=== PATIENT | female | born 1975 | race Caucasian/White ===

== ENCOUNTER 2020-07-01 07:40 | Outpatient (CLI) | payer OTHER, SELFPAY ==
--- NOTE | ~2020-07-01 | MM_ITS ---
EXAMINATION: MM screening [facility] BI w antoni HISTORY: Screening mammogram TECHNIQUE: Craniocaudal and mediolateral oblique 3-D tomosynthesis images were obtained and synthetic 2-D images were generated. CAD analysis was submitted and interpreted. COMPARISON: 119, 05/29/2018, 05/21/2017 BREAST PARENCHYMAL COMPOSITION: The breasts are heterogeneously dense, which may obscure small masses . FINDINGS: There is no evidence of suspicious mass, calcification, or architectural distortion to sugg est malignancy in either breast. There has been no suspicious interval change. IMPRESSION: 1. No mammographic evidence of malignancy. 2. Recommend routine screening mammography in one year. BI-RADS Category 1: Negative Reviewed, dictated and finalized at location A.
== END 2020-07-01 07:41 | disposition home or self-care (01) ==
LOC: ANHIMG 07:42
PROVIDERS: PCP Family Medicine; Visit Provider Obstetrics & Gynecology
DX: Z12.31 Encounter for screening mammogram for malignant neoplasm of breast (principal)
CPT/HCPCS: 77063; 77067

== ENCOUNTER 2021-07-07 10:24 | Outpatient (CLI) | payer OTHER, SELFPAY ==
--- NOTE | ~2021-07-07 | MM_ITS ---
EXAMINATION: MM screening [facility] w antoni HISTORY: Screening TECHNIQUE: Craniocaudal and mediolateral oblique 3-D tomosynthesis images were obtained and synthetic 2-D images were generated. CAD analysis was submitted and interpreted. COMPARISON: Comparison to multiple prior studies sequentially, with oldest reviewed study dated 04/19. BREAST PARENCHYMAL COMPOSITION: The breasts are extremely dense, which lowers the sensitivity of mamm ography. FINDINGS: There is no evidence of suspicious mass, calcification, or architectural distortion to sugg est malignancy in either breast. There has been no suspicious interval change. IMPRESSION: 1. No mammographic evidence of malignancy. 2. Recommend routine screening mammography in one year. BI-RADS Category 1: Negative Reviewed, dictated and finalized at location A.
== END 2021-07-07 10:25 | disposition home or self-care (01) ==
LOC: ANHIMG 10:26
PROVIDERS: PCP Nurse Practitioner Family; Visit Provider Obstetrics & Gynecology
DX: Z12.31 Encounter for screening mammogram for malignant neoplasm of breast (principal)
CPT/HCPCS: 77063; 77067

== ENCOUNTER 2022-09-17 08:22 | Outpatient (CLI) | payer OTHER, SELFPAY ==
--- NOTE | ~2022-09-17 | MM_ITS ---
EXAMINATION: MM screening [facility] w antoni HISTORY: Screening TECHNIQUE: Craniocaudal and mediolateral oblique 3-D tomosynthesis images were obtained and synthetic 2-D images were generated. CAD analysis was submitted and interpreted. COMPARISON: Comparison to multiple prior studies sequentially, with oldest reviewed study dated 04/2016. BREAST PARENCHYMAL COMPOSITION: The breasts are extremely dense, which lowers the sensitivity of mamm ography FINDINGS: There is no evidence of suspicious mass, calcification, or architectural distortion to sugg est malignancy in either breast. There has been no suspicious interval change. IMPRESSION: 1. No mammographic evidence of malignancy. 2. Recommend routine screening mammography in one year. BI-RADS Category 1: Negative Reviewed, dictated and finalized at location A. R TEST
== END 2022-09-17 08:23 | disposition home or self-care (01) ==
LOC: ANHIMG 08:24
PROVIDERS: PCP Family Medicine; Visit Provider Obstetrics & Gynecology
DX: Z12.31 Encounter for screening mammogram for malignant neoplasm of breast (principal)
CPT/HCPCS: 77063; 77067

== ENCOUNTER 2023-11-01 09:10 | Outpatient (CLI) | payer OTHER, SELFPAY ==
--- NOTE | ~2023-11-01 | MM_ITS ---
EXAMINATION: MM screening [facility] w antoni HISTORY: Screening mammogram TECHNIQUE: Craniocaudal and mediolateral oblique 3-D tomosynthesis images were obtained and synthetic 2-D images were generated. CAD analysis was submitted and interpreted. COMPARISON: 09/17/2022, 07/07/2021, 07/01/2020 bilateral screening mammogram examinations BREAST PARENCHYMAL COMPOSITION: The breasts are extremely dense, which lowers the sensitivity of mamm ography. FINDINGS: There is no evidence of suspicious mass, calcification, or architectural distortion to sugg est malignancy in either breast. There has been no suspicious interval change. IMPRESSION: 1. No mammographic evidence of malignancy. 2. Recommend routine screening mammography in one year. BI-RADS Category 1: Negative Reviewed, dictated and finalized at location A. 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
== END 2023-11-01 09:11 | disposition home or self-care (01) ==
PROVIDERS: PCP Family Medicine; Visit Provider Obstetrics & Gynecology
DX: Z12.31 Encounter for screening mammogram for malignant neoplasm of breast (principal)
CPT/HCPCS: 77063; 77067

== ENCOUNTER 2024-07-16 01:51 | Day surgery (SDC) | payer OTHER, SELFPAY ==
[2024-06-24 14:18] VITALS: BMI 27.6
[2024-07-16 06:24] VITALS: BP 110/74; PULSE 87; RESP 20; TEMP 36.4; O2SAT 100
[2024-07-16 06:29] LABS: BEDSIDEPREGUCG Negative (Negative)
[2024-07-16] MEDS: LACTATED RINGERS 1,000 ML 150 ML IV CONT (06:35)
--- NOTE | 2024-07-16 07:14 | WPDANESEPPF ---
Anes - Initial Pre Proc Eval Procedure: Operation Date: 07/16/24 07:30 Proposed Procedures p Screening Colonoscopy - Yousif Torre DO Date/Time: 07/16/24 07:14 Surgeon: Yousif Torre DO Pre Op Diagnosis: Screening for malignant neoplasm of colon Patient Data Age: 49 Gender: F Height: 1.57 m Weight: 67.6 kg Last Vital Signs Temp 36.4 C L 07/16/24 06:24 Pulse 87 07/16/24 06:24 Resp 20 07/16/24 06:24 BP 110/74 07/16/24 06:24 Pulse Ox 100 07/16/24 06:24 O2 Del Method Room Air 07/16/24 06:24 Allergies Allergy/AdvReac Type Severity Reaction Status Date / Time No Known Allergies Allergy Unknown Verified 07/16/24 06:21 Home Medications Medication Instructions Recorded Confirmed Type norgestimate-ethinyl estradiol 1 tablet PO DAILY 09/29/19 07/16/24 History 0.18 mg/0.215mg/0.25mg-35 mcg(28)tablet (Tri-Linyah) cholecalciferol (vitamin D3) 50 50 mcg PO DAILY 03/27/21 07/16/24 History mcg (2,000 unit) capsule fluticasone 100 mcg-salmeterol 50 1 ea inhalation Q12H #180 ea 02/14/24 07/16/24 Rx mcg/dose blistr powdr for inhalation (Advair Diskus) Laboratory Tests 07/16/24 06:24 POC Urine HCG, Qual Negative (Negative) Patient hx anesthesia problems: none Family hx anesthesia problems: none Results Review: All pre-operative results and documents have been reviewed as part of the pre-operative evaluation. [facility] Past Medical History Medical History Asthma Dyslipidemia Surgical History Surgical History Hx of section (~01/2002) Family History Family History Father Diabetes mellitus Grandparent Diabetes mellitus Hypertension Lung cancer Alcohol abuse Heart disease Cerebrovascular accident Lupus Sibling Alcohol abuse Social History Social History Social History: , 2 children. 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 Smoking status: Never smoker Second hand tobacco smoke exposure: No Alcohol intake: current Alcohol use details: only on occasion. Substance use: never Substance use type: does not use Living arrangements: with family Spiritual care concerns: No Anes - Eval Final PreProcedure Day of Procedure 07/16/24 07:14 Patient weight: overweight Heart: regular rate and rhythm Lungs: clear to auscultation Airway: Mallampati scale class II Neurological: alert and oriented Last oral intake: >/= 8 hours ASA classification: II Emergent: no Anesthetic plan: proceed Anesthesia type and monitoring: general GIVS and standard monitoring Results Review: All pre-operative results and documents have been reviewed as part of the pre-operative evaluation. Informed Consent: The patient's anesthetic plan and its attendant risks and benefits were discussed with the patient/family/POA. Questions were solicited and answers provided to the satisfaction of the patient/family/POA.
--- NOTE | 2024-07-16 07:30 | PM.IMHP ---
H&P: HPI History of Present Illness Date/Time: 07/16/24 07:30 Chief Complaint: Screening for colorectal cancer Narrative: this is a 49-year-old woman who presents for colonoscopy. She has never had a colonoscopy before. She denies any family history of colon cancer. She denies any hematochezia or melena. Review of Systems Review of Systems: All systems reviewed & are unremarkable except as noted in HPI and below Constitutional: Constitutional: Denies chills, Denies fever(s), Denies headache(s) and Denies weight loss Eyes: Eyes: Denies change in vision ENT: Denies dizziness, Denies headache(s), Denies neck mass and Denies throat swelling Cardiovascular: Cardiovascular: Denies chest pain, Denies lightheadedness and Denies dyspnea Respiratory: Respiratory: Denies cough, Denies dyspnea and Denies wheezing Gastrointestinal: Gastrointestinal: Denies abdominal pain, Denies change in bowel habits, Denies nausea and Denies vomiting Genitourinary: Genitourinary: Denies hematuria and Denies dysuria Musculoskeletal: Musculoskeletal: Reports as per HPI Integumentary/Breasts: Skin/Breast: Reports as per HPI Neurologic: Denies dizziness and Denies headache(s) Allergic/Immunologic: Allergic/Immunologic: Denies throat swelling and Denies wheezing PMFSH Past Medical History Medical History Asthma Dyslipidemia Surgical History Surgical History Hx of section (~01/2002) Family History Family History Father Diabetes mellitus Grandparent Diabetes mellitus Hypertension Lung cancer Alcohol abuse Heart disease Cerebrovascular accident Lupus Sibling Alcohol abuse Social History Social History Social History: , 2 children. 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 Smoking status: Never smoker Second hand tobacco smoke exposure: No Alcohol intake: current Alcohol use details: only on occasion. Substance use: never Substance use type: does not use Living arrangements: with family Spiritual care concerns: No Meds Home Medications and Allergies Home Medications Medication Instructions Recorded Confirmed Type norgestimate-ethinyl estradiol 1 tablet PO DAILY 11/26/19 09/12/24 History 0.18 mg/0.215mg/0.25mg-35 mcg(28)tablet (Tri-Linyah) cholecalciferol (vitamin D3) 50 50 mcg PO DAILY 03/27/21 07/16/24 History mcg (2,000 unit) capsule fluticasone 100 mcg-salmeterol 50 1 ea inhalation Q12H #180 ea 02/14/24 07/16/24 Rx mcg/dose blistr powdr for inhalation (Advair Diskus) Allergies Allergy/AdvReac Type Severity Reaction Status Date / Time No Known Allergies Allergy Unknown Verified 07/16/24 06:21 Vital Signs Vital Signs - 24 hr 07/16/24 06:24 Temperature 36.4 C L Pulse Rate 87 Respiratory Rate 20 Blood Pressure 110/74 Pulse Oximetry 100 Oxygen Delivery Room Air Exam Const: General: no acute distress and alert Orientation/consciousness: patient oriented x3 HENMT: Head: normocephalic and atraumatic Ears: hearing grossly normal bilaterally Face/Nose/Sinus: Normal nares present Mouth: Yes Normal oral and palatal mucosa present Eyes: Periorbital: periorbital findings normal Sclera: sclerae normal EOM: EOMs intact bilaterally Neck: Neck: normal visual inspection, no lymphadenopathy and trachea midline Chest: Chest palpation & inspection: normal inspection of the chest Resp: Effort & Inspection: normal respiratory effort Auscultation: clear to auscultation bilaterally Cardio: Jugular venous distension: no JVD Rate: regular rate Rhythm: regular rhythm Heart sounds: S1 normal heart sound present and S2 normal heart sound present Peripheral pulses: Peripheral pulses 2+ throughout GI: Inspection: nor
[2024-07-16 07:47] VITALS: BP 106/67; PULSE 73; RESP 15; O2SAT 99
[2024-07-16 07:57] VITALS: BP 109/64; PULSE 77; RESP 14; O2SAT 100
[2024-07-16 08:07] VITALS: BP 110/67; PULSE 75; RESP 19; O2SAT 100
== END 2024-07-16 08:11 | disposition home or self-care (01) ==
PROVIDERS: Anesthesiology; PCP Nurse Practitioner Family; Visit Provider Surgery
PROC: 0DJD8ZZ Inspection of Lower Intestinal Tract, Via Natural or Artificial Opening Endoscopic (ICD-10-PCS; CPT 45378; principal; 2024-07-16 07:30)
DX: Z12.11 Encounter for screening for malignant neoplasm of colon (principal); J45.909 Unspecified asthma, uncomplicated; E78.5 Hyperlipidemia, unspecified; Z79.51 Long term (current) use of inhaled steroids; Z98.890 Other specified postprocedural states; Z80.1 Family history of malignant neoplasm of trachea, bronchus and lung; Z82.49 Family history of ischemic heart disease and other diseases of the circulatory system
CPT/HCPCS: 45378; J2704; J7120

== ENCOUNTER 2025-05-03 07:20 | Outpatient (CLI) | payer OTHER, SELFPAY ==
--- NOTE | ~2025-05-03 | MM_ITS ---
EXAMINATION: MM screening [facility] w antoni HISTORY: Screening mammogram TECHNIQUE: Craniocaudal and mediolateral oblique 3-D tomosynthesis images were obtained and synthetic 2-D images were generated. CAD analysis was submitted and interpreted. COMPARISON: 08/23/2023, 09/17/2022, 07/07/2021, 07/01/2020 BREAST PARENCHYMAL COMPOSITION:Dense: The breasts are heterogeneously dense, which may obscure small masses. FINDINGS: No suspicious mass, calcification, or architectural distortion are identified in either erica ast to suggest malignancy. There has been no suspicious interval change. IMPRESSION: No mammographic evidence of malignancy. Recommend routine screening mammography in one year. BI-RADS Category 1: Negative Reviewed, dictated and finalized at location .
== END 2025-05-03 07:21 | disposition home or self-care (01) ==
LOC: ANHIMG 07:20
PROVIDERS: PCP Nurse Practitioner Family; Visit Provider Obstetrics & Gynecology
DX: Z12.31 Encounter for screening mammogram for malignant neoplasm of breast (principal)
CPT/HCPCS: 77063; 77067